=== PATIENT | male | born 1985 | race African-American/Black ===

== ENCOUNTER 2018-03-14 15:28 | Inpatient (IN) ==
--- NOTE | 2018-03-14 15:58 | Emergency Department Note ---
Disposition Clinical Impression: Paranoia, Hallucinations Disposition: Admitted As Inpatient Condition: Good Forms: ED Satisfaction Letter Psych HPI - General Chief Complaint: ED Psychiatric Symptoms Stated Complaint: Psych Time Seen by Provider: 03/14/18 15:36 Source: patient Mode of arrival: private vehicle Limitations: no limitations Nursing Notes Reviewed: Yes Vital Signs Reviewed: Yes - History of Present Illness HPI Narrative: 32-year-old male history of prior meth abuse who has been clean in recovery for over 2 months of presents to the ER due to hallucinations and paranoia. Staff from the recovery clinic says for the last 2 weeks he has had paranoia where the walk in the room and he is hiding her behind the bed. He feels unsafe and like something is going to happen. Also states he is hearing and seeing things that he knows is not there. Denies any suicidal or homicidal ideation. No past history of any psychiatric illness. Denies any current drug use. Denies any injury. No other complaints. Pt complaint: other (Paranoia, hallucinations) Onset (ago): week(s) History of similar episodes: No Improves with: none Worsens with: none Alleged intoxication: No Associated Psychiatric Symptoms: auditory hallucinations, visual hallucinations Associated symptoms: Reports: denies other symptoms Traumatic symptoms: denies traumatic injury Treatments prior to arrival: none Self harm or harm to others: denies thoughts of harming self/others, denies having a plan - Related Data Allergies Allergy/AdvReac Type Severity Reaction Status Date / Time No Known Allergies Allergy Verified 03/14/18 15:35 All systems ED: reviewed and negative except as stated. Cardiovascular: Denies: chest pain Respiratory: Denies: dyspnea Gastrointestinal: Denies: abdominal pain Musculoskeletal: Denies: back pain, neck pain Neurological: Denies: headache Psychiatric: Reports: auditory hallucinations, visual hallucinations. Denies: anxiety, depression, suicidal thoughts, homicidal thoughts Past Medical History - Past Medical History Attestation: Yes The following information was validated with the patient. Source: patient Medical history: Reports: no medical history Psychiatric history: Reports: anxiety, depression, panic disorder, PTSD - Social History Smoking Status: Current every day smoker Smokeless Tobacco Status: Yes Alcohol use: Reports: none Drug use: Reports: none Physical Exam - General Limitations: no limitations General appearance: alert, in no apparent distress - Head Head exam: atraumatic, normocephalic, normal inspection - Eye Eye exam: Present: normal appearance - ENT ENT exam: normal exam - Neck Neck exam: Present: normal inspection - Chest Chest inspection: Present: normal inspection, symmetric chest wall rise - Respiratory Respiratory exam: Present: normal lung sounds bilaterally - Cardiovascular Cardiovascular exam: Present: regular rate, normal rhythm, normal heart sounds - Abdominal Exam Abdominal exam: Present: soft, Non-Tender. Absent: tenderness, distention, rigidity - Extremities Exam Extremities exam: Present: normal inspection, full ROM - Expanded Upper Extremity Exam Shoulder exam: Present: normal inspection, full ROM Arm exam: Present: normal inspection, full ROM Elbow exam: Present: normal inspection, full ROM Forearm/Wrist exam: Present: normal inspection, full ROM Hand exam: Present: normal inspection, full ROM - Expanded Lower Extremity Exam Hip/Pelvis exam: Present: normal inspection, full ROM Upper leg exam: Present: normal inspection, full ROM Knee exam: Present: normal inspection, full ROM Lower leg exam: Present: normal inspection, full ROM Ankle exam: Present: normal inspection, full ROM Foot/toe exam: Present: normal inspection, full ROM - Neurological Exam Neurological exam: Present: alert, other (GCS 15, No focal deficits) - Psychiatric Psychiatric exam: Present: normal affect, normal mood - Skin Skin exam: Present: warm, dry Course Course Narrative: Patient seen and examined. Vital signs reviewed. Plan for labs for medical clearance for psychiatric evaluation. Vital Signs Temperature 98.7 F 03/14/18 15:34 Pulse Rate 75 03/14/18 15:34 Respiratory Rate 16 03/14/18 15:34 Blood Pressure 140/87 03/14/18 15:34 O2 Sat by Pulse Oximetry 98 03/14/18 15:34 Temperature 98.7 F 03/14/18 15:45 Pulse Rate 75 03/14/18 15:45 Respiratory Rate 16 03/14/18 15:45 Blood Pressure 140/87 03/14/18 15:45 O2 Sat by Pulse Oximetry 98 03/14/18 15:45 Oxygen Delivery Oxygen Delivery Room Air Psych - MDM Narrative Medical decision making narrative: 32-year-old male presenting with paranoia and delusions. Medically cleared for psychiatric evaluation. He was evaluated by our service and deemed appropriate for inpatient management. - Lab Data Lab results reviewed: Yes I reviewed the patient's lab results. Result diagrams: 03/14/18 15:48 03/14/18 15:48 Lab Results 03/14/18 03/14/18 03/14/18 Range/Units 15:36 15:48 15:48 WBC 6.4 (4.3-11.1) K/mcL RBC 5.04 (4.19-5.50) M/mcL Hgb 15.1 (12.9-16.9) g/dL Hct 45.3 (37.5-50.1) % MCV 89.9 (83.0-100.0) fL MCH 30.0 (28.0-33.3) pg MCHC 33.3 (31.6-35.5) g/dL RDW 13.9 (11.5-14.5) % Plt Count 269 (140-400) K/mcL MPV 9.7 (9.4-12.4) fL Immature Gran % 0.5 (0-4) % Seg Neutrophils % 49.1 % Lymphocytes % 32.2 % Monocytes % 15.5 % Eosinophils % 1.9 % Basophils % 0.8 % Neutrophils # 3.1 (1.6-8.9) K/mcL Lymphocytes # 2.1 (0.6-4.6) K/mcL Monocytes # 1.0 (0.0-1.3) K/mcL Eosinophils # 0.1 (0.0-0.6) K/mcL Basophils # 0.1 (0.0-0.2) K/mcL Sodium 137 (136-145) mEq/L Potassium 4.3 (3.5-5.1) mEq/L Chloride 104 (98-107) mEq/L Carbon Dioxide 28 (23-29) mEq/L BUN 17 (6-20) mg/dL Creatinine 1.15 (0.70-1.30) mg/dL Est GFR ( Amer) > 60 (> 60) Est GFR (Non-Af Amer) > 60 (> 60) BUN/Creatinine Ratio 15 (6-26) Glucose 95 (70-105) mg/dL Calculated Osmolality 285 (280-300) Calcium 9.5 (8.6-10.3) mg/dL TSH (0.340-5.600) mcIU/mL Urine Color (Yellow) Urine Clarity (Clear) Urine pH (5.0-8.0) pH Units Ur Specific [place] (1.010-1.025) Urine Protein (Neg-Trace) mg/dL Urine Glucose (UA) (Normal) mg/dL Urine Ketones (Negative) mg/dL Urine Blood (Negative) Urine Nitrite (Negative) Urine Bilirubin (Negative) Urine Urobilinogen (Normal) mg/dL Ur Leukocyte Esterase (Negative) Salicylates < 2.5 L (15.0-30.0) mg/dL Urine Opiates Screen Negative (Fzrpof=582) ng/mL Acetaminophen < 10 L (10-20) mcg/mL Ur Barbiturates Screen Negative (Cymcba=337) ng/mL Ur Phencyclidine Scrn Negative (Cutoff=25) ng/mL Ur Amphetamines Screen Negative (Cbswpp=2127) ng/mL U Benzodiazepines Scrn Negative (Kxsahc=947) ng/mL Urine Cocaine Screen Negative (Cutoff= 300) ng/mL U Marijuana (THC) Screen Negative (Cutoff = 50) ng/mL Ur Drug Screen Interp See Below Ethyl Alcohol < 10 (Less than 10) mg/dL 03/14/18 03/14/18 Range/Units 15:48 16:45 WBC (4.3-11.1) K/mcL RBC (4.19-5.50) M/mcL Hgb (12.9-16.9) g/dL Hct (37.5-50.1) % MCV (83.0-100.0) fL MCH (28.0-33.3) pg MCHC (31.6-35.5) g/dL RDW (11.5-14.5) % Plt Count (140-400) K/mcL MPV (9.4-12.4) fL Immature Gran % (0-4) % Seg Neutrophils % % Lymphocytes % % Monocytes % % Eosinophils % % Basophils % % Neutrophils # (1.6-8.9) K/mcL Lymphocytes # (0.6-4.6) K/mcL Monocytes # (0.0-1.3) K/mcL Eosinophils # (0.0-0.6) K/mcL Basophils # (0.0-0.2) K/mcL Sodium (136-145) mEq/L Potassium (3.5-5.1) mEq/L Chloride (98-107) mEq/L Carbon Dioxide (23-29) mEq/L BUN (6-20) mg/dL Creatinine (0.70-1.30) mg/dL Est GFR ( Amer) (> 60) Est GFR (Non-Af Amer) (> 60) BUN/Creatinine Ratio (6-26) Glucose (70-105) mg/dL Calculated Osmolality (280-300) Calcium (8.6-10.3) mg/dL TSH 0.740 (0.340-5.600) mcIU/mL Urine Color Yellow (Yellow) Urine Clarity Clear (Clear) Urine pH 6.5 (5.0-8.0) pH Units Ur Specific [place] 1.019 (1.010-1.025) Urine Protein Negative (Neg-Trace) mg/dL Urine Glucose (UA) Normal (Normal) mg/dL Urine Ketones Negative (Negative) mg/dL Urine Blood Negative (Negative) Urine Nitrite Negative (Negative) Urine Bilirubin Negative (Negative) Urine Urobilinogen Normal (Normal) mg/dL Ur Leukocyte Esterase Negative (Negative) Salicylates (15.0-30.0) mg/dL Urine Opiates Screen (Eolpyp=598) ng/mL Acetaminophen (10-20) mcg/mL Ur Barbiturates Screen (Ylfbui=357) ng/mL Ur Phencyclidine Scrn (Cutoff=25) ng/mL Ur Amphetamines Screen (Bssedh=2804) ng/mL U Benzodiazepines Scrn (Ipjuex=833) ng/mL Urine Cocaine Screen (Cutoff= 300) ng/mL U Marijuana (THC) Screen (Cutoff = 50) ng/mL Ur Drug Screen Interp Ethyl Alcohol (Less than 10) mg/dL Psychiatric Medical Clearance - Medical Clearance Checklist Medical History: No Social History Section defined Current Vitals: Last Vital Signs Temp 98.7 F 03/14/18 15:45 Pulse 75 03/14/18 15:45 Resp 16 03/14/18 15:45 BP 140/87 03/14/18 15:45 Pulse Ox 98 03/14/18 15:45 Psychiatric Lab Panel: Drug Levels and Toxicity 03/14/18 03/14/18 15:36 15:48 Urine Opiates Screen Negative Acetaminophen < 10 L Ur Barbiturates Screen Negative Ur Phencyclidine Scrn Negative Ur Amphetamines Screen Negative U Benzodiazepines Scrn Negative Urine Cocaine Screen Negative U Marijuana (THC) Screen Negative Ethyl Alcohol < 10 Abnormal Labs: Abnormal lab results Salicylates < 2.5 mg/dL (15.0-30.0) L 03/14/18 15:48 Acetaminophen < 10 mcg/mL (10-20) L 03/14/18 15:48 Statement of Medical Clearance: I have evaluated the patient, reviewed diagnostic information, and certify that the patient's medical condition is sufficiently stable that transfer to the psychiatric unit does not pose a significant risk of deterioration. Attestation Statement - Attestation Attestation: I, Heri Herrera, examined this patient and my medical decision-making was reviewed with the PMP CERTIFIED PROJECT MANAGER/PA/Advanced Practice Nurse/Resident Physician. I agree with the documented findings, disposition and treatment plan as described except to the extent set forth below. 32-year-old male presents emergency Department with concerns of auditory and visual hallucinations. Patient states that the hallucinations have been worsening over the past few days. Patient is recovering from methamphetamine addiction and has been sober for 2 months. Over the past 2 days the rehabilitation facility workers have noticed that he has been increasingly paranoid, thinking that cars that were driving by were out to get him. Because of the symptoms he was referred to [facility] for [facility] health evaluation. Patient denies HI however he has had occasional suicidal ideation. He does not have a specific plan. Patient denies SI attempt. Patient states he often sees shadows and other visual hallucinations. He also reports command auditory hallucinations. Patient will be medically cleared and evaluated by behavioral health.
[2018-03-14 16:12] LABS: Basophils # 0.1 K/mcL (0.0-0.2); Basophils % 0.8 %; Eosinophils # 0.1 K/mcL (0.0-0.6); Eosinophils % 1.9 %; Hematocrit 45.3 % (37.5-50.1); Hemoglobin 15.1 g/dL (12.9-16.9); Immature Granulocytes % 0.5 % (0-4); Lymphocytes # 2.1 K/mcL (0.6-4.6); Lymphocytes % 32.2 %; Mean Corpuscular HGB Conc 33.3 g/dL (31.6-35.5); Mean Corpuscular Volume 89.9 fL (83.0-100.0); Mean Platelet Volume 9.7 fL (9.4-12.4); Monocytes % 15.5 %; Neutrophils # 3.1 K/mcL (1.6-8.9); Platelet Count 269 K/mcL (140-400); Red Blood Count 5.04 M/mcL (4.19-5.50); Red Cell Distribution Width 13.9 % (11.5-14.5); Segmented Neutrophils % 49.1 %
[2018-03-14 16:26] LABS: Acetaminophen < 10 mcg/mL (10-20); BUN/Creatinine Ratio 15 (6-26); Blood Urea Nitrogen 17 mg/dL (6-20); Calcium 9.5 mg/dL (8.6-10.3); Carbon Dioxide 28 mEq/L (23-29); Chloride 104 mEq/L (98-107); Ethanol < 10 mg/dL (Less than 10); Glucose 95 mg/dL (70-105); Osmolality,Calculated 285 (280-300); Potassium 4.3 mEq/L (3.5-5.1); Salicylate < 2.5 mg/dL (15.0-30.0); Sodium 137 mEq/L (136-145); eGFR For Non-African Americans > 60 (> 60)
[2018-03-14 17:08] LABS: Amphetamine Screen,Urine Negative ng/mL (Cutoff=1000); Barbiturate Screen,Urine Negative ng/mL (Cutoff=200); Benzodiazepines Screen,Urine Negative ng/mL (Cutoff=200); Cannabinoid Screen,Urine Negative ng/mL (Cutoff = 50); Cocaine Screen,Urine Negative ng/mL (Cutoff= 300); Opiate Screen,Urine Negative ng/mL (Cutoff=300); Phencyclidine Screen,Urine Negative ng/mL (Cutoff=25)
[2018-03-14 17:12] LABS: Bilirubin,Urine Negative (Negative); Blood,Urine Negative (Negative); Clarity,Urine Clear (Clear); Color,Urine Yellow (Yellow); Glucose,Urine (UA) Normal (Normal); Ketones,Urine Negative (Negative); Leukocyte Esterase,Urine Negative (Negative); Nitrite,Urine Negative (Negative); PH,Urine 6.5 pH Units (5.0-8.0); Protein,Urine Negative (Neg-Trace); Specific Gravity,Urine 1.019 (1.010-1.025); Urobilinogen,Urine Normal (Normal)
[2018-03-14] MEDS ORDERED: *HR* LORazepam 2 MG/ML VIAL IM PRN (19:07)
[2018-03-14] MEDS ORDERED: Acetaminophen 325 MG TABLET PO PRN (19:07)
[2018-03-14] MEDS ORDERED: MOM Conc 10 ML UD.LIQ PO PRN (19:07)
[2018-03-14] MEDS ORDERED: *HR* LORazepam 1 MG TABLET PO PRN (19:07)
[2018-03-14] MEDS ORDERED: Haloperidol Lactate 5 MG/ML VIAL IM PRN (19:07)
[2018-03-14] MEDS ORDERED: Mag Hydrox/Al Hydrox/Simeth 30 ML UDC PO PRN (19:07)
[2018-03-14] MEDS: hydrOXYzine pamoate 25 MG CAPSULE PO PRN (20:38)
--- NOTE | 2018-03-15 12:20 | Psychiatry History & Physical ---
Date of Encounter: 03/15/18 Time of Encounter: 11:40 History of Present Illness Patient Stated Chief Complaint: I am ok Medicare Admission Attestation: For traditional Medicare patients the provided hospital inpatient services are reasonable and necessary and in the case of services not specified as inpatient -only under 42 CFR 419.22 (n), that they are appropriately provided as inpatient services in accordance 42 CFR 412.3. For Critical Access Hospital the patient may reasonably be expected to be discharged or transferred to a hospital within 96 hours after admission to the Critical [facility] Hospital. Admitted From: Emergency Dept Plans for Post Hospital Care: Transfer Other History of Present Illness: Mr. Garrett is a 32 year old male evaluated today . From Chart 32-year-old male history of prior meth abuse who has been clean in recovery for over 2 months of presents to the ER due to hallucinations and paranoia. Staff from the recovery clinic says for the last 2 weeks he has had paranoia where the walk in the room and he is hiding her behind the bed. He feels unsafe and like something is going to happen. Also states he is hearing and seeing things that he knows is not there. Denies any suicidal or homicidal ideation. No past history of any psychiatric illness. Denies any current drug use. Denies any injury. No other complaints. HPI : Patient evaluated states i am confuse , i am not using any driugs , my piss is clean but i am not liking the feeling that someone is watching me and will kill me, i also have been hearing things like beeping noise, i have been seeing shadows tall men after me, i am scared , i am clean what is happening, he has been clean for 2 months now. he used Meth snorted it did for 6 months states he had uses weed ,cocain , pills and alcohol . this is his second rehab. no prior psychiatric treatment , only substance use treatment. He is very paranoid , cameras, and someone wants to kill him , he states this is all new to me, i am fearful , i have never been in gang , i do not owe anyone and i am getting nervous around people and they will harm me, i am too scared to harm others, dnies suicidal ideation. feeling depress and i worry a lot what will happen , i was very emotional this morning. he has feeling like this for 2-3 weeks now. A/P ACute psychosis AMPHETAMINE USE DISORDER 2 MONTHS SOBERITY POLY SUBSTANCE USE . Will admit patient for stabilization for psychosis . start medication and unit drug. Past Med Surg Social Fam HX - Past Medical History Medical history: no medical history - Past Psychiatric History Psychiatric history: Reports: no psych history Family psychiatric history: No Family History of Suicide: None - Social History Smoking Status: Current every day smoker Smokeless Tobacco Status: Yes Alcohol use: none Drug use: none Occupational status: unemployed Current living situation: Other Activity Level: Independent ambulation Recent Out of Country Travel Within the Last 8 Weeks: No Exposure or Possible Exposure to Illness During Travel: No Medications & Allergies No Known Home Drugs 03/14/18 [History] 3 Allergy/AdvReac Type Severity Reaction Status Date / Time No Known Allergies Allergy Verified 03/14/18 15:35 Review of Systems Constitutional: Denies: fever, chills, weakness, weight change Eyes: Denies: eye pain, vision change Ears, Nose, Throat: Denies: ear pain, throat pain, dental pain, hearing loss, congestion Cardiovascular: Denies: chest pain, palpitations, dyspnea on exertion Respiratory: Denies: cough, dyspnea, wheezes Gastrointestinal: Denies: abdominal pain, nausea, vomiting, diarrhea, constipation Genitourinary male: Denies: urgency, dysuria, frequency, genital lesions Musculoskeletal: Denies: joint swelling, joint pain Integumentary: Denies: rash, lesions, pruritus Neurological: Denies: headache, weakness, numbness, memory loss Psychiatric: Reports: depression, abnormal sleep pattern, auditory hallucinations, visual hallucinations, mood swings Endocrine: Denies: fatigue, heat or cold intolerance Hematologic/Lymphatic: Denies: easy bruising, lymphadenopathy Allergic/Immunologic: Denies: urticaria, itchy eyes Exam - HEENT Head exam IM: Present: atraumatic Eye exam IM: Present: EOMI, normal appearance, PERRL ENT exam IM: Present: normal exam - Neurological Neurological exam: Present: CN II-XII intact - Respiratory Respiratory exam IM: Present: CTAB - GI/Abdominal GI/Abdominal exam IM: Present: normal bowel sounds, soft. Absent: tenderness - Extremities Extremities exam IM: Present: full ROM - Skin Skin exam IM: Present: dry, warm - Constitutional Vitals: Temp Pulse Resp BP Pulse Ox 97.8 F 99 16 116/79 98 03/15/18 09:00 03/15/18 09:00 03/15/18 09:00 03/15/18 09:00 03/14/18 15:45 General appearance: average - Musculoskeletal Gait: normal Station: other Strength & Tone: normal for patient - Psychiatric Patient Orientation: Yes Person, Yes Time, Yes Place Level of alertness: Alert Behavior: cooperative, guarded Psychomotor activity: Normal Eye Contact: Maintains Eye Contact Mood Description: Depressed Affect description: constricted Speech Volume: Normal Speech pattern: coherent Language & Vocabulary: consistent with education Thought Process: Racing Thought Content: Yes Preoccupation, Yes Paranoid delusion Perceptual Disturbances: Yes Auditory hallucinations, Yes Visual hallucinations Attention Span Ability: Capable of Focused Attention Memory Description: Grossly Intact Patient Reliability: Reliable Historian Fund of knowledge: Yes average Intelligence Estimate: Average Judgment: Limited Insight: Partial Results - Labs Labs: Laboratory Last Values WBC 6.4 K/mcL (4.3-11.1) 03/14/18 15:48 RBC 5.04 M/mcL (4.19-5.50) 03/14/18 15:48 Hgb 15.1 g/dL (12.9-16.9) 03/14/18 15:48 Hct 45.3 % (37.5-50.1) 03/14/18 15:48 MCV 89.9 fL (83.0-100.0) 03/14/18 15:48 MCH 30.0 pg (28.0-33.3) 03/14/18 15:48 MCHC 33.3 g/dL (31.6-35.5) 03/14/18 15:48 RDW 13.9 % (11.5-14.5) 03/14/18 15:48 Plt Count 269 K/mcL (140-400) 03/14/18 15:48 MPV 9.7 fL (9.4-12.4) 03/14/18 15:48 Immature Gran % 0.5 % (0-4) 03/14/18 15:48 Seg Neutrophils % 49.1 % 03/14/18 15:48 Lymphocytes % 32.2 % 03/14/18 15:48 Monocytes % 15.5 % 03/14/18 15:48 Eosinophils % 1.9 % 03/14/18 15:48 Basophils % 0.8 % 03/14/18 15:48 Neutrophils # 3.1 K/mcL (1.6-8.9) 03/14/18 15:48 Lymphocytes # 2.1 K/mcL (0.6-4.6) 03/14/18 15:48 Monocytes # 1.0 K/mcL (0.0-1.3) 03/14/18 15:48 Eosinophils # 0.1 K/mcL (0.0-0.6) 03/14/18 15:48 Basophils # 0.1 K/mcL (0.0-0.2) 03/14/18 15:48 Sodium 137 mEq/L (136-145) 03/14/18 15:48 Potassium 4.3 mEq/L (3.5-5.1) 03/14/18 15:48 Chloride 104 mEq/L (98-107) 03/14/18 15:48 Carbon Dioxide 28 mEq/L (23-29) 03/14/18 15:48 BUN 17 mg/dL (6-20) 03/14/18 15:48 Creatinine 1.15 mg/dL (0.70-1.30) 03/14/18 15:48 Est GFR ( Amer) > 60 (> 60) 03/14/18 15:48 Est GFR (Non-Af Amer) > 60 (> 60) 03/14/18 15:48 BUN/Creatinine Ratio 15 (6-26) 03/14/18 15:48 Glucose 95 mg/dL (70-105) 03/14/18 15:48 Calculated Osmolality 285 (280-300) 03/14/18 15:48 Calcium 9.5 mg/dL (8.6-10.3) 03/14/18 15:48 TSH 0.740 mcIU/mL (0.340-5.600) 03/14/18 15:48 Urine Color Yellow (Yellow) 03/14/18 16:45 Urine Clarity Clear (Clear) 03/14/18 16:45 Urine pH 6.5 pH Units (5.0-8.0) 03/14/18 16:45 Ur Specific [place] 1.019 (1.010-1.025) 03/14/18 16:45 Urine Protein Negative mg/dL (Neg-Trace) 03/14/18 16:45 Urine Glucose (UA) Normal mg/dL (Normal) 03/14/18 16:45 Urine Ketones Negative mg/dL (Negative) 03/14/18 16:45 Urine Blood Negative (Negative) 03/14/18 16:45 Urine Nitrite Negative (Negative) 03/14/18 16:45 Urine Bilirubin Negative (Negative) 03/14/18 16:45 Urine Urobilinogen Normal mg/dL (Normal) 03/14/18 16:45 Ur Leukocyte Esterase Negative (Negative) 03/14/18 16:45 Salicylates < 2.5 mg/dL (15.0-30.0) L 03/14/18 15:48 Urine Opiates Screen Negative ng/mL (Kcqwpe=348) 03/14/18 15:36 Acetaminophen < 10 mcg/mL (10-20) L 03/14/18 15:48 Ur Barbiturates Screen Negative ng/mL (Xjodnd=803) 03/14/18 15:36 Ur Phencyclidine Scrn Negative ng/mL (Cutoff=25) 03/14/18 15:36 Ur Amphetamines Screen Negative ng/mL (Qtxqst=2191) 03/14/18 15:36 U Benzodiazepines Scrn Negative ng/mL (Xwccbe=499) 03/14/18 15:36 Urine Cocaine Screen Negative ng/mL (Cutoff= 300) 03/14/18 15:36 U Marijuana (THC) Screen Negative ng/mL (Cutoff = 50) 03/14/18 15:36 Ur Drug Screen Interp See Below 03/14/18 15:36 Ethyl Alcohol < 10 mg/dL (Less than 10) 03/14/18 15:48 Assessment and Plan (1) Acute psychosis Current visit: Yes Status: Acute Plan: Admit inpatient for safety and stabilization, Close observation, Suicide Precautions per unit protocol, Encourage participation in unit milieu, Group Therapy, Monitor sleep, Monitor appetite, Family/Supportive other meeting Additional Plan: will admit patient for psychosis , start medication and unit milieu Risks, benefits, side effects, alternatives discussed w/pt: Yes Patient agreeable to treatment: Yes Plans for Post Hospital Care: Transfer Other
[2018-03-15] MEDS: hydrOXYzine pamoate 25 MG CAPSULE PO PRN (20:49)
[2018-03-15] MEDS: risperiDONE 1 MG TABLET PO SCH (20:49)
--- NOTE | 2018-03-16 11:26 | Psychiatry Progress Note ---
Date of Encounter: 03/16/18 Time of Encounter: 11:00 Subjective Interval history: Patient seen today ,case d/w treatment team , he slept well, did not had any nightmares, but still remains paranoid and thoughts about people to harm him , he is also feeling sad and depress, i am worried about emotions and i want the stuff in my head to get better. he feels hopeless and has guilt , denies suicide ideation. he is looking dysphoric and agreed feeling not good , he states i know my head is not right. will add escitalopram 10 mg to treatment plan , continue risperdal , need to taper up slowly. continue observation and stabilization. Review of Systems Psychiatric: Reports: depression, abnormal sleep pattern, auditory hallucinations, visual hallucinations, mood swings Results - Vital Signs Vital Signs: Temp Pulse Resp BP Pulse Ox 98.5 F 70 18 148/90 98 03/15/18 21:00 03/15/18 21:00 03/15/18 21:00 03/15/18 21:00 03/14/18 15:45 Assessment and Plan (1) Acute psychosis Current visit: Yes Status: Acute Risks, benefits, side effects, alternatives discussed w/pt: Yes Patient agreeable to treatment: Yes (2) Depressive disorder Current visit: Yes Status: Acute Plan: Continue hospitalization, Close observation, Suicide Precautions per unit protocol, Encourage participation in unit milieu, Group Therapy, Monitor sleep, Monitor appetite, Family/Supportive other meeting Risks, benefits, side effects, alternatives discussed w/pt: Yes Patient agreeable to treatment: Yes Consult Discharge Plan - Plan Additional Instructions: You will be returning to residential substance abuse treatment services at [facility], [facility] [address] [address], phone [phone], on discharge from hospital. Referrals: [facility] [Outside] - 03/22/18 10:00 am (Due to a shortage of intake appointments at [facility], you will be seen by Mirlande Ha at [facility] to have your case opened. Mirlande will then immediately transfer your case to [facility] where you will be scheduled to see the psychiatrist within 30 days. Staff from both clinics are aware of your need and are in agreement with this process so your needs are met as quickly as possible. Please bring the following with you to your first visit to the clinic: 1) proof of income (or a statement from the person who financially supports you stating they help provide for your basic needs), 2) proof of address (a statement from person you live with verifying you live at their address), 3) your social security number, 4) photo ID, and 5) your insurance card. ) Psychiatry Exam - Constitutional Vitals: Temp Pulse Resp BP Pulse Ox 98.5 F 70 18 148/90 98 03/15/18 21:00 03/15/18 21:00 03/15/18 21:00 03/15/18 21:00 03/14/18 15:45 General appearance: average - Musculoskeletal Gait: normal Station: other Strength & Tone: normal for patient - Psychiatric Patient Orientation: Yes Person, Yes Time, Yes Place Level of alertness: Alert Behavior: guarded, withdrawn Psychomotor activity: Slowed Eye Contact: Minimal Contact Mood Description: Depressed, Anxious Affect description: congruent with mood, dysphoric Speech Volume: Normal Speech pattern: slowed Language & Vocabulary: consistent with education Thought Process: Intact Thought Content: Yes Preoccupation, Yes Paranoid delusion Perceptual Disturbances: No Auditory hallucinations, No Visual hallucinations Attention Span Ability: Capable of Focused Attention Memory Description: Grossly Intact Patient Reliability: Reliable Historian Fund of knowledge: Yes average Intelligence Estimate: Average Judgment: Limited Insight: Partial
[2018-03-16] MEDS: risperiDONE 1 MG TABLET PO SCH (21:30)
--- NOTE | 2018-03-17 10:57 | Psychiatry Progress Note ---
Date of Encounter: 03/17/18 Time of Encounter: 10:46 Subjective Interval history: Client reports he is feeling better. Thinks meds are starting to help him. Still has some paranoia but hallucinations have lessened. Plans to go back to [facility] once discharged but doesn't feel quite ready yet. Staff agree that he is doing better but not yet stable for discharge. Pleasant today but still has observable anxiety. Review of Systems Constitutional: Denies: fever, chills, weakness, weight change Eyes: Denies: eye pain, vision change Ears, Nose, Throat: Denies: ear pain, throat pain, dental pain, hearing loss, congestion Cardiovascular: Denies: chest pain, palpitations, dyspnea on exertion Respiratory: Denies: cough, dyspnea, wheezes Gastrointestinal: Denies: abdominal pain, nausea, vomiting, diarrhea, constipation Musculoskeletal: Denies: joint swelling, joint pain Neurological: Denies: headache, weakness, numbness, memory loss Psychiatric: Reports: depression, abnormal sleep pattern, auditory hallucinations, visual hallucinations, mood swings Results - Vital Signs Vital Signs: Temp Pulse Resp BP Pulse Ox 98.7 F 76 18 143/91 98 03/16/18 21:00 03/16/18 21:00 03/16/18 21:00 03/16/18 21:00 03/14/18 15:45 Assessment and Plan (1) Substance-induced psychotic disorder Current visit: Yes Status: Acute Plan: Continue hospitalization, Close observation, Suicide Precautions per unit protocol, Encourage participation in unit milieu, Group Therapy, Monitor sleep, Monitor appetite Risks, benefits, side effects, alternatives discussed w/pt: Yes Patient agreeable to treatment: Yes Consult Discharge Plan - Plan Additional Instructions: You will be returning to residential substance abuse treatment services at [facility], [facility] [address] [address], phone [phone], on discharge from hospital. Referrals: [facility] [Outside] - 03/22/18 10:00 am (Due to a shortage of intake appointments at [facility], you will be seen by Mirlande Ha at [facility] to have your case opened. Mirlande will then immediately transfer your case to [facility] where you will be scheduled to see the psychiatrist within 30 days. Staff from both clinics are aware of your need and are in agreement with this process so your needs are met as quickly as possible. Please bring the following with you to your first visit to the clinic: 1) proof of income (or a statement from the person who financially supports you stating they help provide for your basic needs), 2) proof of address (a statement from person you live with verifying you live at their address), 3) your social security number, 4) photo ID, and 5) your insurance card. ) Psychiatry Exam - Constitutional Vitals: Temp Pulse Resp BP Pulse Ox 98.7 F 76 18 143/91 98 03/16/18 21:00 03/16/18 21:00 03/16/18 21:00 03/16/18 21:00 03/14/18 15:45 General appearance: age & developmentally appropriate, well-groomed, well- nourished - Musculoskeletal Gait: normal Station: relaxed Strength & Tone: normal for patient - Psychiatric Patient Orientation: Yes Person, Yes Time, Yes Place Level of alertness: Alert Behavior: anxious Psychomotor activity: Normal Eye Contact: Maintains Eye Contact Mood Description: Anxious Affect description: congruent with mood Speech Volume: Normal Speech pattern: normal rate, normal rhythm, normal tone, fluent, spontaneous Language & Vocabulary: consistent with education Thought Process: Linear Thought Content: No Suicidal ideation, No Homicidal ideation, No Overt delusions Perceptual Disturbances: No Auditory hallucinations, No Visual hallucinations Attention Span Ability: Capable of Focused Attention Memory Description: Grossly Intact Patient Reliability: Reliable Historian Fund of knowledge: Yes abstraction ability, Yes aware of current events Intelligence Estimate: Below Average Judgment: Fair Insight: Partial
[2018-03-17] MEDS: risperiDONE 1 MG TABLET PO SCH (20:55)
[2018-03-17] MEDS: hydrOXYzine pamoate 25 MG CAPSULE PO PRN (20:55)
--- NOTE | 2018-03-18 11:17 | Psychiatry Progress Note ---
Date of Encounter: 03/18/18 Time of Encounter: 11:14 Subjective Interval history: Looks better. Denies any further hallucinations. Denies paranoia. Still a little anxious but client feels he is ready to manage at [facility] again. Given Seroquel last night to help him sleep and client reports this was effective. Would like to continue this after discharge. According to staff he has been pleasant and cooperative on the unit. Will contact rehab. Likely discharge tomorrow. Review of Systems Constitutional: Denies: fever, chills, weakness, weight change Eyes: Denies: eye pain, vision change Ears, Nose, Throat: Denies: ear pain, throat pain, dental pain, hearing loss, congestion Cardiovascular: Denies: chest pain, palpitations, dyspnea on exertion Respiratory: Denies: cough, dyspnea, wheezes Gastrointestinal: Denies: abdominal pain, nausea, vomiting, diarrhea, constipation Musculoskeletal: Denies: joint swelling, joint pain Neurological: Denies: headache, weakness, numbness, memory loss Psychiatric: Reports: depression, abnormal sleep pattern, auditory hallucinations, visual hallucinations, mood swings Results - Vital Signs Vital Signs: Temp Pulse Resp BP Pulse Ox 98.0 F 71 18 119/76 98 03/18/18 09:00 03/18/18 09:00 03/18/18 09:00 03/18/18 09:00 03/14/18 15:45 Assessment and Plan (1) Substance-induced psychotic disorder Current visit: Yes Status: Acute Plan: Continue hospitalization, Close observation, Suicide Precautions per unit protocol, Encourage participation in unit milieu, Group Therapy, Monitor sleep, Monitor appetite Risks, benefits, side effects, alternatives discussed w/pt: Yes Patient agreeable to treatment: Yes Consult Discharge Plan - Plan Additional Instructions: You will be returning to residential substance abuse treatment services at [facility], [facility] [address] [address], phone [phone], on discharge from hospital. Referrals: [facility] [Outside] - 03/22/18 10:00 am (Due to a shortage of intake appointments at [facility], you will be seen by Mirlande Ha at [facility] to have your case opened. Mirlande will then immediately transfer your case to [facility] where you will be scheduled to see the psychiatrist within 30 days. Staff from both clinics are aware of your need and are in agreement with this process so your needs are met as quickly as possible. Please bring the following with you to your first visit to the clinic: 1) proof of income (or a statement from the person who financially supports you stating they help provide for your basic needs), 2) proof of address (a statement from person you live with verifying you live at their address), 3) your social security number, 4) photo ID, and 5) your insurance card. ) Psychiatry Exam - Constitutional Vitals: Temp Pulse Resp BP Pulse Ox 98.0 F 71 18 119/76 98 03/18/18 09:00 03/18/18 09:00 03/18/18 09:00 03/18/18 09:00 03/14/18 15:45 General appearance: age & developmentally appropriate, well-groomed, well- nourished - Musculoskeletal Gait: normal Station: relaxed Strength & Tone: normal for patient - Psychiatric Patient Orientation: Yes Person, Yes Time, Yes Place Level of alertness: Alert Behavior: calm, cooperative Psychomotor activity: Normal Eye Contact: Maintains Eye Contact Mood Description: Anxious Affect description: congruent with mood Speech Volume: Normal Speech pattern: normal rate, normal rhythm, normal tone, fluent, spontaneous Language & Vocabulary: consistent with education Thought Process: Linear, Goal Oriented Thought Content: No Suicidal ideation, No Homicidal ideation, No Overt delusions Perceptual Disturbances: No Auditory hallucinations, No Visual hallucinations Attention Span Ability: Capable of Focused Attention Memory Description: Grossly Intact Patient Reliability: Reliable Historian Fund of knowledge: Yes abstraction ability, Yes aware of current events Intelligence Estimate: Average Judgment: Fair Insight: Partial
[2018-03-18] MEDS: hydrOXYzine pamoate 25 MG CAPSULE PO PRN (20:27)
[2018-03-18] MEDS: risperiDONE 1 MG TABLET PO SCH (20:27)
[2018-03-19 08:36] VITALS: BP 125/79
--- NOTE | 2018-03-19 10:25 | Discharge Summary ---
Date of Encounter: 03/19/18 Time of Encounter: 10:30 Diagnosis - Discharge Diagnosis (1) Acute psychosis Priority: Secondary Status: Resolved (2) Depressive disorder Priority: Primary Status: Acute (3) Substance-induced psychotic disorder Priority: Secondary Status: Resolved Medications - Discharge Medications Prescriptions: Benztropine [Cogentin] 0.5 mg PO HS 30 Days #30 tablet Escitalopram [Lexapro] 10 mg PO DAILY 30 Days #30 tablet hydrOXYzine pamoate [HydrOXYzine Pamoate] 25 mg PO TID PRN 90 Days #30 capsule PRN Reason: Anxiety risperiDONE [RisperDAL] 1 mg PO HS 30 Days #30 tablet Benztropine [Cogentin] 0.5 mg PO HS 30 Days #30 tablet 03/19/18 [Rx] Escitalopram [Lexapro] 10 mg PO DAILY 30 Days #30 tablet 03/19/18 [Rx] hydrOXYzine pamoate [HydrOXYzine Pamoate] 25 mg PO TID PRN 90 Days #30 capsule 03/19/18 [Rx] risperiDONE [RisperDAL] 1 mg PO HS 30 Days #30 tablet 03/19/18 [Rx] 3 Allergy/AdvReac Type Severity Reaction Status Date / Time No Known Allergies Allergy Verified 03/14/18 15:35 Provider Date of admission: 03/14/18 19:03 Primary care physician: PCP NONE Discharging clinician: Neal Shukla Psychiatry Exam - Constitutional Vitals: Temp Pulse Resp BP Pulse Ox 98.7 F 71 18 125/79 98 03/19/18 08:35 03/19/18 08:35 03/19/18 08:35 03/19/18 08:35 03/14/18 15:45 General appearance: age & developmentally appropriate, well-groomed, well- nourished - Musculoskeletal Gait: normal Station: relaxed Strength & Tone: normal for patient - Psychiatric Patient Orientation: Yes Person, Yes Time, Yes Place Level of alertness: Alert Behavior: calm, cooperative Psychomotor activity: Normal Eye Contact: Maintains Eye Contact Mood Description: Euthymic/stable Affect description: congruent with mood, full range Speech Volume: Normal Speech pattern: normal rate, normal rhythm, normal tone, fluent, spontaneous Language & Vocabulary: consistent with education Thought Process: Linear, Goal Oriented Thought Content: No Suicidal ideation, No Homicidal ideation, No Overt delusions Perceptual Disturbances: No Auditory hallucinations, No Visual hallucinations Attention Span Ability: Capable of Focused Attention Memory Description: Grossly Intact Patient Reliability: Reliable Historian Fund of knowledge: Yes abstraction ability, Yes aware of current events Intelligence Estimate: Average Judgment: Fair Insight: Partial Hospital Course Hospital course: Mr. Garrett is a 32 year old male The patient describes that he is improved and he no longer hears the voices. Chief complaint: I had a lot of paranoia and that is when they brought me in. The patient was seen and evaluated on the inpatient unit. He participated in hutchins activities and over. Of time he developed less paranoia. The patient is showing me medicines that he was on prior to admission these include Seroquel risperidone Vistaril and Cogentin. However on the inpatient unit he was prescribed trazodone. He took Seroquel when necessary remained on scheduled Cogentin and Risperdal. Overall the voices diminished and while he acknowledges hearing he thinks that the people who were speaking to him are now . He notices that this may have her March later in his life after drinking or using substances. Patient now adheres to sobriety. He now will go to [facility]. However the patient cannot be discharged on trazodone. He cannot be discharged on Seroquel therefore adjustments were made time of discharge and the patient was placed on a trial of prazosin 1 mg daily at bedtime. It is likely that he will tolerate this is he tolerated trazodone. His follow-up will be at [facility] and later the [facility]. The patient was a 1 pack per day smoker. While on the unit he was able to give up smoking he did not want to have nicotine patches at the time discharge. I discussed the importance of smoking cessation at the time discharge.. The patient was discharged with a diagnosis of F 23 brief reactive psychosis now resolved, F 33.9 depressive disorder not otherwise specified for which she is on Lexapro. Substance-induced psychosis was also given as a diagnosis again since resolved. But the patient may need to be considered for the possibility of alcohol hallucinosis rule out F 10.951). The patient agrees to 90 meetings in 90 days. He agrees to getting a sponsor. He recognizes the need for sobriety and abstinence from drugs of abuse. Patient had no suicidal ideation at the time of discharge and no significant paranoia. The trial of prazosin was started on an outpatient basis patient was educated on the side effects of this medicine. He was educated on the importance of taking his other medicines as well Time spent discussing smoking cessation with patient: 3 to 10 minutes Does patient wish to continue nicotine replacement upon disc: No - Time Spent with Patient Total time spent providing and/or coordinating discharge services: Less than 30 minutes Assessment and Plan - Patient/Caregiver Discharge Instructions Activity: resume usual activities as tolerated Diet: regular diet Additional Instructions: You will be returning to residential substance abuse treatment services at [facility], [address] [place] [address], phone [phone], on discharge from hospital. - Follow up Plan Follow up with: [facility] [Outside] - 03/22/18 10:00 am (Due to a shortage of intake appointments at [facility], you will be seen by Mirlande Ha at [facility] to have your case opened. Mirlande will then immediately transfer your case to [facility] where you will be scheduled to see the psychiatrist within 30 days. Staff from both clinics are aware of your need and are in agreement with this process so your needs are met as quickly as possible. Please bring the following with you to your first visit to the clinic: 1) proof of income (or a statement from the person who financially supports you stating they help provide for your basic needs), 2) proof of address (a statement from person you live with verifying you live at their address), 3) your social security number, 4) photo ID, and 5) your insurance card. ) Functional capacity at discharge: independent ambulation Overall status at discharge: Stable Disposition: Home, Self-Care Quality - Multiple Antipsychotics Patient discharged on 2 or more antipsychotic medications: No - Justification Documentation of: History 3 failed trials of monotherapy Procedures - Procedures Procedures: Medication Management, Crisis Stabilization, Supportive Therapy, Group Therapy, Psychoeducational Therapy
== END 2018-03-19 12:10 | disposition home or self-care (01) | DRG 751 ==
LOC: EMEROOARM 15:28 → SUATTDRO 19:03 → 1ANU 19:03
PROVIDERS: ADMIT Psychiatry & Neurology Psychiatry; ATTEND Psychiatry & Neurology Forensic Psychiatry

== ENCOUNTER 2018-04-12 14:46 | Inpatient (IN) ==
[2018-04-12 16:01] LABS: Bilirubin,Urine Negative (Negative); Blood,Urine Negative (Negative); Clarity,Urine Clear (Clear); Color,Urine Yellow (Yellow); Glucose,Urine (UA) Normal (Normal); Ketones,Urine Negative (Negative); Leukocyte Esterase,Urine Negative (Negative); Nitrite,Urine Negative (Negative); PH,Urine 6.5 pH Units (5.0-8.0); Protein,Urine Negative (Neg-Trace); Specific Gravity,Urine 1.011 (1.010-1.025); Urobilinogen,Urine Normal (Normal)
[2018-04-12 16:17] LABS: Amphetamine Screen,Urine Negative ng/mL (Cutoff=1000); Barbiturate Screen,Urine Negative ng/mL (Cutoff=200); Benzodiazepines Screen,Urine Negative ng/mL (Cutoff=200); Cannabinoid Screen,Urine Positive ng/mL (Cutoff = 50); Cocaine Screen,Urine Negative ng/mL (Cutoff= 300); Opiate Screen,Urine Negative ng/mL (Cutoff=300); Phencyclidine Screen,Urine Negative ng/mL (Cutoff=25)
[2018-04-12 16:19] LABS: Basophils # 0.1 K/mcL (0.0-0.2); Basophils % 0.9 %; Eosinophils # 0.1 K/mcL (0.0-0.6); Eosinophils % 1.7 %; Hematocrit 47.6 % (37.5-50.1); Hemoglobin 16.2 g/dL (12.9-16.9); Immature Granulocytes % 0.4 % (0-4); Lymphocytes # 1.9 K/mcL (0.6-4.6); Lymphocytes % 35.2 %; Mean Corpuscular Hemoglobin 30.2 pg (28.0-33.3); Mean Corpuscular Volume 88.6 fL (83.0-100.0); Mean Platelet Volume 9.4 fL (9.4-12.4); Monocytes # 0.8 K/mcL (0.0-1.3); Monocytes % 14.5 %; Neutrophils # 2.6 K/mcL (1.6-8.9); Platelet Count 267 K/mcL (140-400); Red Blood Count 5.37 M/mcL (4.19-5.50); Red Cell Distribution Width 12.6 % (11.5-14.5); Segmented Neutrophils % 47.3 %
[2018-04-12 16:36] LABS: Acetaminophen < 10 mcg/mL (10-20); Alanine Aminotransferase 34 Units/L (7-52); Albumin 4.5 g/dL (3.5-5.7); Albumin/Globulin Ratio 1.5 (1.1-2.2); Alkaline Phosphatase 35 Units/L (34-104); Aspartate Amino Transferase 26 Units/L (13-39); Bilirubin,Direct 0.1 mg/dL (0.0-0.2); Bilirubin,Indirect 0.3 mg/dL (0.0-1.2); Bilirubin,Total 0.4 mg/dL (0.3-1.0); Ethanol < 10 mg/dL (Less than 10); Salicylate < 2.5 mg/dL (15.0-30.0); Total Protein 7.5 g/dL (6.4-8.9)
--- NOTE | 2018-04-12 18:34 | Emergency Department Note ---
Disposition Clinical Impression: Auditory hallucination, Visual hallucination, Suicidal ideation, Chronic schizophrenia, Hallucinations, Paranoia Depression Qualifiers: Depression Type: unspecified Qualified Code(s): F32.9 - Major depressive disorder, single episode, unspecified Disposition: Admitted As Inpatient Condition: Fair Time of Disposition: 18:45 General Adult HPI - General Chief complaint: ED Psychiatric Symptoms Stated complaint: SI/hallucinations Time Seen by Provider: 04/12/18 15:20 Source: patient Mode of arrival: ambulatory Limitations: no limitations Nursing Notes Reviewed: Yes Vital Signs Reviewed: Yes - History of Present Illness HPI Narrative: Patient is a 32-year-old male with past medical history of hallucinations as well as a psychiatric admission presents to the emergency department for evaluation of auditory and visual hallucinations. Patient admits to a prior history of drug use including methamphetamine, however he states that he has been clean. He does admit to marijuana use as well as occasional alcohol use but no alcohol use as of recently. The patient states that the voices and people that ear is hearing and seeing her just telling him to "come here." Patient also admits to thoughts of harming himself, however he has no plan and hasn't attempted. Pain Scale: 0 - Related Data Home Medications Medication Instructions Recorded Confirmed Prazosin [Minipress] 1 mg PO DAILY 04/13/18 04/13/18 Previous Rx's Medication Instructions Recorded Benztropine [Cogentin] 0.5 mg PO HS 30 Days #30 tablet 03/19/18 Escitalopram [Lexapro] 10 mg PO DAILY 30 Days #30 tablet 03/19/18 hydrOXYzine pamoate [HydrOXYzine 25 mg PO TID PRN 90 Days #30 03/19/18 Pamoate] capsule risperiDONE [RisperDAL] 1 mg PO HS 30 Days #30 tablet 03/19/18 Allergies Allergy/AdvReac Type Severity Reaction Status Date / Time No Known Allergies Allergy Verified 03/14/18 15:35 All systems ED: reviewed and negative except as stated. Review of Systems: As Per HPI Psychiatric: Reports: auditory hallucinations, visual hallucinations Past Medical History - Past Medical History Attestation: Yes The following information was validated with the patient. Medical history: Reports: no medical history Psychiatric history: Reports: anxiety, depression, panic disorder, PTSD, previous psychiatric hospitalization - Social History Smoking Status: Current every day smoker Smokeless Tobacco Status: Yes Alcohol use: Reports: none Drug use: Reports: methamphetamine Physical Exam CONSTITUTIONAL: Alert and oriented X3, well-nourished, well appearing, in no apparent distress HEAD: Normocephalic; atraumatic. EYES: PERRL, no scleral icterus. NOSE: The nose is normal in appearance without rhinorrhea RESP: Normal chest excursion with respiration; breath sounds clear and equal bilaterally; no wheezes, rhonchi, or rales CARD: Regular rhythm, without murmurs, rub or gallop ABD: Non-distended; non-tender, soft,without rigidity, rebound or guarding SKIN: Normal for age and race; warm and dry; no apparent lesions PSYCH: Admits to visual and auditory hallucinations. - General Limitations: no limitations General appearance: alert Course Course Narrative: Patient is stable at this time. He will be pink slipped and he will undergo evaluation for medical clearance to be seen by 1A. Vital Signs Temperature 98.2 F 04/12/18 14:50 Pulse Rate 67 04/12/18 14:50 Respiratory Rate 22 04/12/18 14:50 Blood Pressure 159/93 04/12/18 14:50 O2 Sat by Pulse Oximetry 98 04/12/18 14:50 Temperature 98.5 F 04/14/18 09:00 Pulse Rate 68 04/14/18 09:00 Respiratory Rate 16 04/14/18 09:00 Blood Pressure 124/59 04/14/18 09:00 O2 Sat by Pulse Oximetry 98 04/13/18 20:39 Oxygen Delivery Oxygen Delivery Room Air Medical Decision Making - Medical Records Medical records reviewed: Yes I reviewed the patient's medical records. - Lab Data Lab results reviewed: Yes I reviewed the patient's lab results. Result diagrams: 04/12/18 15:57 Lab Results 04/12/18 04/12/18 04/12/18 Range/Units 15:49 15:49 15:57 WBC 5.5 (4.3-11.1) K/mcL RBC 5.37 (4.19-5.50) M/mcL Hgb 16.2 (12.9-16.9) g/dL Hct 47.6 (37.5-50.1) % MCV 88.6 (83.0-100.0) fL MCH 30.2 (28.0-33.3) pg MCHC 34.0 (31.6-35.5) g/dL RDW 12.6 (11.5-14.5) % Plt Count 267 (140-400) K/mcL MPV 9.4 (9.4-12.4) fL Immature Gran % 0.4 (0-4) % Seg Neutrophils % 47.3 % Lymphocytes % 35.2 % Monocytes % 14.5 % Eosinophils % 1.7 % Basophils % 0.9 % Neutrophils # 2.6 (1.6-8.9) K/mcL Lymphocytes # 1.9 (0.6-4.6) K/mcL Monocytes # 0.8 (0.0-1.3) K/mcL Eosinophils # 0.1 (0.0-0.6) K/mcL Basophils # 0.1 (0.0-0.2) K/mcL Total Bilirubin (0.3-1.0) mg/dL Direct Bilirubin (0.0-0.2) mg/dL Indirect Bilirubin (0.0-1.2) mg/dL AST (13-39) Units/L ALT (7-52) Units/L Alkaline Phosphatase (34-104) Units/L Serum Total Protein (6.4-8.9) g/dL Albumin (3.5-5.7) g/dL Globulin (2.4-3.5) g/dL Albumin/Globulin Ratio (1.1-2.2) Urine Color Yellow (Yellow) Urine Clarity Clear (Clear) Urine pH 6.5 (5.0-8.0) pH Units Ur Specific [place] 1.011 (1.010-1.025) Urine Protein Negative (Neg-Trace) mg/dL Urine Glucose (UA) Normal (Normal) mg/dL Urine Ketones Negative (Negative) mg/dL Urine Blood Negative (Negative) Urine Nitrite Negative (Negative) Urine Bilirubin Negative (Negative) Urine Urobilinogen Normal (Normal) mg/dL Ur Leukocyte Esterase Negative (Negative) Salicylates (15.0-30.0) mg/dL Urine Opiates Screen Negative (Youxtw=529) ng/mL Acetaminophen (10-20) mcg/mL Ur Barbiturates Screen Negative (Wtwgzq=517) ng/mL Ur Phencyclidine Scrn Negative (Cutoff=25) ng/mL Ur Amphetamines Screen Negative (Pyhdjb=2313) ng/mL U Benzodiazepines Scrn Negative (Wbzyyb=382) ng/mL Urine Cocaine Screen Negative (Cutoff= 300) ng/mL U Marijuana (THC) Screen Positive H (Cutoff = 50) ng/mL Ur Drug Screen Interp See Below Ethyl Alcohol (Less than 10) mg/dL 04/12/18 Range/Units 15:57 WBC (4.3-11.1) K/mcL RBC (4.19-5.50) M/mcL Hgb (12.9-16.9) g/dL Hct (37.5-50.1) % MCV (83.0-100.0) fL MCH (28.0-33.3) pg MCHC (31.6-35.5) g/dL RDW (11.5-14.5) % Plt Count (140-400) K/mcL MPV (9.4-12.4) fL Immature Gran % (0-4) % Seg Neutrophils % % Lymphocytes % % Monocytes % % Eosinophils % % Basophils % % Neutrophils # (1.6-8.9) K/mcL Lymphocytes # (0.6-4.6) K/mcL Monocytes # (0.0-1.3) K/mcL Eosinophils # (0.0-0.6) K/mcL Basophils # (0.0-0.2) K/mcL Total Bilirubin 0.4 (0.3-1.0) mg/dL Direct Bilirubin 0.1 (0.0-0.2) mg/dL Indirect Bilirubin 0.3 (0.0-1.2) mg/dL AST 26 (13-39) Units/L ALT 34 (7-52) Units/L Alkaline Phosphatase 35 (34-104) Units/L Serum Total Protein 7.5 (6.4-8.9) g/dL Albumin 4.5 (3.5-5.7) g/dL Globulin 3.0 (2.4-3.5) g/dL Albumin/Globulin Ratio 1.5 (1.1-2.2) Urine Color (Yellow) Urine Clarity (Clear) Urine pH (5.0-8.0) pH Units Ur Specific [place] (1.010-1.025) Urine Protein (Neg-Trace) mg/dL Urine Glucose (UA) (Normal) mg/dL Urine Ketones (Negative) mg/dL Urine Blood (Negative) Urine Nitrite (Negative) Urine Bilirubin (Negative) Urine Urobilinogen (Normal) mg/dL Ur Leukocyte Esterase (Negative) Salicylates < 2.5 L (15.0-30.0) mg/dL Urine Opiates Screen (Mwraci=382) ng/mL Acetaminophen < 10 L (10-20) mcg/mL Ur Barbiturates Screen (Inzyrk=545) ng/mL Ur Phencyclidine Scrn (Cutoff=25) ng/mL Ur Amphetamines Screen (Nyxkeb=4387) ng/mL U Benzodiazepines Scrn (Jqhlot=280) ng/mL Urine Cocaine Screen (Cutoff= 300) ng/mL U Marijuana (THC) Screen (Cutoff = 50) ng/mL Ur Drug Screen Interp Ethyl Alcohol < 10 (Less than 10) mg/dL Attestation Statement - Attestation Attestation: Pt is a 32 yo bm with hx schizophrenia who presents to the ED with c/o incr depression with thoughts of harming himself and having visual and auditory hallucinations "telling him to hurt himself". Pt denies any prior hospitalizations. Pt reports medication compliance. Pt homeless, no local family. No recent falls/trauma, no recent change in medications. No recent illness, difficulty tolerating medications. I agree with patient's PE findings as documented. VSS. Pt placed on suicide precautions, pink slip signed and pt underwent psych m edical clearance with labs/UA. Pt with pos marijuana, otherwise labs wnl. Pt medically cleared for psychiatric evaluation by 1A, who felt pt would benefit from inpt admission and treatment.
[2018-04-12] MEDS ORDERED: *HR* LORazepam 1 MG TABLET PO PRN (19:24)
[2018-04-12] MEDS ORDERED: *HR* LORazepam 2 MG/ML VIAL IM PRN (19:24)
[2018-04-12] MEDS ORDERED: Haloperidol Lactate 5 MG/ML VIAL IM PRN (19:24)
[2018-04-12] MEDS ORDERED: MOM Conc 10 ML UD.LIQ PO PRN (19:24)
[2018-04-12] MEDS ORDERED: hydrOXYzine pamoate 25 MG CAPSULE PO PRN (19:38)
[2018-04-12] MEDS: risperiDONE 1 MG TABLET PO SCH (21:23)
--- NOTE | 2018-04-13 11:09 | Psychiatry History & Physical ---
Date of Encounter: 04/13/18 Time of Encounter: 11:00 History of Present Illness Medicare Admission Attestation: For traditional Medicare patients the provided hospital inpatient services are reasonable and necessary and in the case of services not specified as inpatient-only under 42 CFR 419.22 (n), that they are appropriately provided as inpatient services in accordance 42 CFR 412.3. For Critical Access Hospital the patient may reasonably be expected to be discharged or transferred to a hospital within 96 hours after admission to the Critical Access Hospital. Admitted From: Emergency Dept Plans for Post Hospital Care: Home History of Present Illness: Pt is a 32 yo ,, male, x1, with 4 children (12S, 9D, 5S, 4D), who presents for schizophrenia exacrbation with paranoid thoughts that people were following him. Pt noted he currently lives in [place] with my sister and my niece. Pt noted recent exacerbation of depression. Pt states when I came in I thought I wanted to hurt myself. Pt noted I came in because I needed some help I feel much better now. I feel safe and comfortable on the unit. Pt denied any side effects to current medications. Pt was in agreement with current treatment plan. Pt noted that he is doing alright today. Pt noted he slept 6 hours broken night. Pt noted his appetite is its down. Pt rated his depression a 8, on a scale of zero to ten with ten being the worst and zero being none. Pt rate his anxiety a 8, on the same scale. Pt denied any current auditory or visual hallucinations. Pt denied any current thoughts to harm himself or anyone else. Pt noted that he lives alone in [place], currently homeless. PT noted his mother and father are alive and live in [facility]. Pt noted that his highest level of education is 11th. Pt noted he is currently unemployed and receives SSDI. Pt not 1 previous inpt psychiatric hospitalizations. Pt denied any previous suicide attempts. Pt denied any family hx of suicides. PT denied any family mental health hx. Pt denied seizures, TBI, HEP C or HIV. No TD noted, AIMS=0 Alcohol: denies Street: marijuana occasionally Tobacco: 1PPD Caffiene: 2-3 per day. Assessment/Plan 1.Interval hx 2.Continue current medications 3.Review current labs 4.Pt had an opportunity to ask questions and discuss current treatment plan. 5.Supportive therapy was provided 6.Pt encouraged to consider group or individual therapy 7.Pt was in agreement with treatment plan. 8.Pt was educated on the risks benefits and side effects of current medications. 9. Continue risperidone 2 mg PO QHS for mood. Past Med Surg Social Fam HX - Past Medical History Medical history: no medical history - Past Psychiatric History Psychiatric history: Reports: schizophrenia, previous psychiatric hospitalization Family psychiatric history: No Family History of Suicide: None - Past Surgical History Surgical History: no surgical history - Social History Smoking Status: Current every day smoker Smokeless Tobacco Status: Yes Alcohol use: none Drug use: methamphetamine Medications & Allergies Benztropine [Cogentin] 0.5 mg PO HS 30 Days #30 tablet 03/19/18 [Rx] Escitalopram [Lexapro] 10 mg PO DAILY 30 Days #30 tablet 03/19/18 [Rx] hydrOXYzine pamoate [HydrOXYzine Pamoate] 25 mg PO TID PRN 90 Days #30 capsule 03/19/18 [Rx] risperiDONE [RisperDAL] 1 mg PO HS 30 Days #30 tablet 03/19/18 [Rx] Prazosin [Minipress] 1 mg PO DAILY 04/13/18 [History] Allergy/AdvReac Type Severity Reaction Status Date / Time No Known Allergies Allergy Verified 03/14/18 15:35 Review of Systems Constitutional: Denies: fever, chills, weakness, weight change Eyes: Denies: eye pain, vision change Ears, Nose, Throat: Denies: ear pain, throat pain, dental pain, hearing loss, congestion Cardiovascular: Denies: chest pain, palpitations, dyspnea on exertion Respiratory: Denies: cough, dyspnea, wheezes Gastrointestinal: Denies: abdominal pain, nausea, vomiting, diarrhea, constipation Genitourinary male: Denies: urgency, dysuria, frequency, genital lesions Musculoskeletal: Denies: joint swelling, joint pain Integumentary: Denies: rash, lesions, pruritus Neurological: Denies: headache, weakness, numbness, memory loss Psychiatric: Reports: depression, suicidal ideation, auditory hallucinations Endocrine: Denies: fatigue, heat or cold intolerance Hematologic/Lymphatic: Denies: easy bruising, lymphadenopathy Allergic/Immunologic: Denies: urticaria, itchy eyes Exam - HEENT Head exam IM: Present: atraumatic Eye exam IM: Present: EOMI, normal appearance, PERRL ENT exam IM: Present: normal exam - Neurological Neurological exam: Present: CN II-XII intact - Respiratory Respiratory exam IM: Present: CTAB - GI/Abdominal GI/Abdominal exam IM: Present: normal bowel sounds, soft. Absent: tenderness - Extremities Extremities exam IM: Present: full ROM - Skin Skin exam IM: Present: dry, warm - Constitutional Vitals: Temp Pulse Resp BP Pulse Ox 97.5 F L 78 18 136/84 98 04/13/18 09:25 04/13/18 09:25 04/13/18 09:25 04/13/18 09:25 04/13/18 09:25 General appearance: age & developmentally appropriate, well-groomed, well- nourished - Musculoskeletal Gait: normal Station: relaxed Strength & Tone: normal for patient - Psychiatric Patient Orientation: Yes Person, Yes Time, Yes Place Level of alertness: Alert Behavior: calm, cooperative Psychomotor activity: Normal Eye Contact: Maintains Eye Contact Mood Description: Euthymic/stable Affect description: congruent with mood, full range Speech Volume: Normal Speech pattern: normal rate, normal rhythm, normal tone, fluent, spontaneous Language & Vocabulary: consistent with education Thought Process: Linear, Goal Oriented Thought Content: Yes Suicidal ideation, No Homicidal ideation, No Overt delusions, Yes Ideas of reference, Yes Paranoid delusion, Yes Obsessive thoughts Perceptual Disturbances: Yes Auditory hallucinations, No Visual hallucinations Attention Span Ability: Capable of Focused Attention Memory Description: Grossly Intact Patient Reliability: Reliable Historian Fund of knowledge: Yes abstraction ability, Yes average, Yes aware of current events Intelligence Estimate: Average Judgment: Limited Insight: Partial Results - Drug Levels and Toxicology Drug Levels and Toxicology: Drug Levels and Toxicity 04/12/18 04/12/18 15:49 15:57 Urine Opiates Screen Negative Acetaminophen < 10 L Ur Barbiturates Screen Negative Ur Phencyclidine Scrn Negative Ur Amphetamines Screen Negative U Benzodiazepines Scrn Negative Urine Cocaine Screen Negative U Marijuana (THC) Screen Positive H Ethyl Alcohol < 10 - Labs Labs: Laboratory Last Values WBC 5.5 K/mcL (4.3-11.1) 04/12/18 15:57 RBC 5.37 M/mcL (4.19-5.50) 04/12/18 15:57 Hgb 16.2 g/dL (12.9-16.9) 04/12/18 15:57 Hct 47.6 % (37.5-50.1) 04/12/18 15:57 MCV 88.6 fL (83.0-100.0) 04/12/18 15:57 MCH 30.2 pg (28.0-33.3) 04/12/18 15:57 MCHC 34.0 g/dL (31.6-35.5) 04/12/18 15:57 RDW 12.6 % (11.5-14.5) 04/12/18 15:57 Plt Count 267 K/mcL (140-400) 04/12/18 15:57 MPV 9.4 fL (9.4-12.4) 04/12/18 15:57 Immature Gran % 0.4 % (0-4) 04/12/18 15:57 Seg Neutrophils % 47.3 % 04/12/18 15:57 Lymphocytes % 35.2 % 04/12/18 15:57 Monocytes % 14.5 % 04/12/18 15:57 Eosinophils % 1.7 % 04/12/18 15:57 Basophils % 0.9 % 04/12/18 15:57 Neutrophils # 2.6 K/mcL (1.6-8.9) 04/12/18 15:57 Lymphocytes # 1.9 K/mcL (0.6-4.6) 04/12/18 15:57 Monocytes # 0.8 K/mcL (0.0-1.3) 04/12/18 15:57 Eosinophils # 0.1 K/mcL (0.0-0.6) 04/12/18 15:57 Basophils # 0.1 K/mcL (0.0-0.2) 04/12/18 15:57 Total Bilirubin 0.4 mg/dL (0.3-1.0) 04/12/18 15:57 Direct Bilirubin 0.1 mg/dL (0.0-0.2) 04/12/18 15:57 Indirect Bilirubin 0.3 mg/dL (0.0-1.2) 04/12/18 15:57 AST 26 Units/L (13-39) 04/12/18 15:57 ALT 34 Units/L (7-52) 04/12/18 15:57 Alkaline Phosphatase 35 Units/L (34-104) 04/12/18 15:57 Serum Total Protein 7.5 g/dL (6.4-8.9) 04/12/18 15:57 Albumin 4.5 g/dL (3.5-5.7) 04/12/18 15:57 Globulin 3.0 g/dL (2.4-3.5) 04/12/18 15:57 Albumin/Globulin Ratio 1.5 (1.1-2.2) 04/12/18 15:57 Urine Color Yellow (Yellow) 04/12/18 15:49 Urine Clarity Clear (Clear) 04/12/18 15:49 Urine pH 6.5 pH Units (5.0-8.0) 04/12/18 15:49 Ur Specific [place] 1.011 (1.010-1.025) 04/12/18 15:49 Urine Protein Negative mg/dL (Neg-Trace) 04/12/18 15:49 Urine Glucose (UA) Normal mg/dL (Normal) 04/12/18 15:49 Urine Ketones Negative mg/dL (Negative) 04/12/18 15:49 Urine Blood Negative (Negative) 04/12/18 15:49 Urine Nitrite Negative (Negative) 04/12/18 15:49 Urine Bilirubin Negative (Negative) 04/12/18 15:49 Urine Urobilinogen Normal mg/dL (Normal) 04/12/18 15:49 Ur Leukocyte Esterase Negative (Negative) 04/12/18 15:49 Salicylates < 2.5 mg/dL (15.0-30.0) L 04/12/18 15:57 Urine Opiates Screen Negative ng/mL (Tpxmso=923) 04/12/18 15:49 Acetaminophen < 10 mcg/mL (10-20) L 04/12/18 15:57 Ur Barbiturates Screen Negative ng/mL (Xxifva=483) 04/12/18 15:49 Ur Phencyclidine Scrn Negative ng/mL (Cutoff=25) 04/12/18 15:49 Ur Amphetamines Screen Negative ng/mL (Mmvrei=7745) 04/12/18 15:49 U Benzodiazepines Scrn Negative ng/mL (Qrkkqu=125) 04/12/18 15:49 Urine Cocaine Screen Negative ng/mL (Cutoff= 300) 04/12/18 15:49 U Marijuana (THC) Screen Positive ng/mL (Cutoff = 50) H 04/12/18 15:49 Ur Drug Screen Interp See Below 04/12/18 15:49 Ethyl Alcohol < 10 mg/dL (Less than 10) 04/12/18 15:57 Assessment and Plan (1) Schizophrenia Current visit: Yes Status: Acute Plan: Admit inpatient for safety and stabilization, Close observation, Suicide Precautions per unit protocol, Encourage participation in unit milieu, Group Therapy, Monitor sleep, Monitor appetite Risks, benefits, side effects, alternatives discussed w/pt: Yes Patient agreeable to treatment: Yes Plans for Post Hospital Care: at Medical Facility Qualifiers: Schizophrenia type: paranoid schizophrenia Qualified Code(s): F20.0 - Paranoid schizophrenia
[2018-04-13] MEDS: traZODone 50 MG TABLET PO PRN (20:53)
[2018-04-13] MEDS: risperiDONE 1 MG TABLET PO SCH (20:53)
[2018-04-13] MEDS: hydrOXYzine pamoate 25 MG CAPSULE PO PRN (20:56)
--- NOTE | 2018-04-14 11:19 | Psychiatry Progress Note ---
Date of Encounter: 04/14/18 Time of Encounter: 11:16 Subjective Interval history: Client readmitted after leaving substance abuse program with a friend. Smoked THC but otherwise did not use any drugs. States he left due to return of symptoms. Out for a week before deciding to return to . Meds restarted and Risperdal increased yesterday. Client reports he has not noticed any improvement yet. Sill experiencing anxiety, paranoia, and hallucinations. Seems lower functioning. Wants to return to rehab but does not feel ready yet. Review of Systems Constitutional: Denies: fever, chills, weakness, weight change Eyes: Denies: eye pain, vision change Ears, Nose, Throat: Denies: ear pain, throat pain, dental pain, hearing loss, congestion Cardiovascular: Denies: chest pain, palpitations, dyspnea on exertion Respiratory: Denies: cough, dyspnea, wheezes Gastrointestinal: Denies: abdominal pain, nausea, vomiting, diarrhea, constipation Musculoskeletal: Denies: joint swelling, joint pain Neurological: Denies: headache, weakness, numbness, memory loss Psychiatric: Reports: depression, suicidal ideation, auditory hallucinations Results - Vital Signs Vital Signs: Temp Pulse Resp BP Pulse Ox 98.5 F 68 16 124/59 98 04/14/18 09:00 04/14/18 09:00 04/14/18 09:00 04/14/18 09:00 04/13/18 20:39 Assessment and Plan (1) Schizophrenia Current visit: Yes Status: Acute Plan: Continue hospitalization, Close observation, Suicide Precautions per unit protocol, Encourage participation in unit milieu, Group Therapy, Monitor sleep, Monitor appetite Risks, benefits, side effects, alternatives discussed w/pt: Yes Patient agreeable to treatment: Yes Qualifiers: Schizophrenia type: paranoid schizophrenia Qualified Code(s): F20.0 - Paranoid schizophrenia Consult Discharge Plan - Plan Referrals: NONE,PCP [Primary Care Provider] - Psychiatry Exam - Constitutional Vitals: Temp Pulse Resp BP Pulse Ox 98.5 F 68 16 124/59 98 04/14/18 09:00 04/14/18 09:00 04/14/18 09:00 04/14/18 09:00 04/13/18 20:39 General appearance: age & developmentally appropriate, well-groomed, well- nourished - Musculoskeletal Gait: normal Station: relaxed Strength & Tone: normal for patient - Psychiatric Patient Orientation: Yes Person, Yes Time, Yes Place Level of alertness: Alert Behavior: calm, cooperative Psychomotor activity: Normal Eye Contact: Maintains Eye Contact Mood Description: Anxious Affect description: congruent with mood Speech Volume: Normal Speech pattern: normal rate, normal rhythm, normal tone, fluent, spontaneous Language & Vocabulary: consistent with education Thought Process: Linear Thought Content: No Suicidal ideation, No Homicidal ideation, No Overt delusions Perceptual Disturbances: Yes Auditory hallucinations, Yes Visual hallucinations Attention Span Ability: Capable of Focused Attention Memory Description: Grossly Intact Patient Reliability: Reliable Historian Fund of knowledge: Yes abstraction ability, Yes aware of current events Intelligence Estimate: Below Average Judgment: Fair Insight: Partial
[2018-04-14] MEDS: risperiDONE 1 MG TABLET PO SCH (20:48)
[2018-04-14] MEDS: hydrOXYzine pamoate 25 MG CAPSULE PO PRN (20:49)
[2018-04-14] MEDS: Acetaminophen 325 MG TABLET PO PRN (20:49)
[2018-04-14] MEDS: traZODone 50 MG TABLET PO PRN (20:49)
--- NOTE | 2018-04-15 09:33 | Psychiatry Progress Note ---
Date of Encounter: 04/15/18 Time of Encounter: 09:31 Subjective Interval history: Client reports he is pushing himself to interact more. Started yesterday and plans to try and socialize more today. Still has some trouble sleeping and requested a higher Trazodone dose for tonight. Some paranoia but mood and anxiety levels are improving. Denies SI. Wants to go back to rehab. Review of Systems Constitutional: Denies: fever, chills, weakness, weight change Eyes: Denies: eye pain, vision change Ears, Nose, Throat: Denies: ear pain, throat pain, dental pain, hearing loss, congestion Cardiovascular: Denies: chest pain, palpitations, dyspnea on exertion Respiratory: Denies: cough, dyspnea, wheezes Gastrointestinal: Denies: abdominal pain, nausea, vomiting, diarrhea, constipation Musculoskeletal: Denies: joint swelling, joint pain Neurological: Denies: headache, weakness, numbness, memory loss Psychiatric: Reports: depression, suicidal ideation, auditory hallucinations Results - Vital Signs Vital Signs: Temp Pulse Resp BP Pulse Ox 97.9 F 76 17 123/82 98 04/15/18 08:20 04/15/18 08:20 04/15/18 08:20 04/15/18 08:20 04/13/18 20:39 Assessment and Plan (1) Schizophrenia Current visit: Yes Status: Acute Plan: Continue hospitalization, Close observation, Suicide Precautions per unit protocol, Encourage participation in unit milieu, Group Therapy, Monitor sleep, Monitor appetite Risks, benefits, side effects, alternatives discussed w/pt: Yes Patient agreeable to treatment: Yes Qualifiers: Schizophrenia type: paranoid schizophrenia Qualified Code(s): F20.0 - Paranoid schizophrenia Consult Discharge Plan - Plan Referrals: NONE,PCP [Primary Care Provider] - Psychiatry Exam - Constitutional Vitals: Temp Pulse Resp BP Pulse Ox 97.9 F 76 17 123/82 98 04/15/18 08:20 04/15/18 08:20 04/15/18 08:20 04/15/18 08:20 04/13/18 20:39 General appearance: age & developmentally appropriate - Musculoskeletal Gait: normal Station: relaxed Strength & Tone: normal for patient - Psychiatric Patient Orientation: Yes Person, Yes Time, Yes Place Level of alertness: Alert Behavior: calm, cooperative Psychomotor activity: Normal Eye Contact: Maintains Eye Contact Mood Description: Depressed, Anxious Affect description: congruent with mood Speech Volume: Normal Speech pattern: normal rate, normal rhythm, normal tone, fluent, spontaneous Language & Vocabulary: consistent with education Thought Process: Linear Thought Content: No Suicidal ideation, No Homicidal ideation, No Overt delusions Perceptual Disturbances: No Auditory hallucinations, No Visual hallucinations Attention Span Ability: Capable of Focused Attention Memory Description: Grossly Intact Patient Reliability: Reliable Historian Fund of knowledge: Yes abstraction ability, Yes aware of current events Intelligence Estimate: Below Average Judgment: Fair Insight: Partial
[2018-04-15] MEDS: Acetaminophen 325 MG TABLET PO PRN (20:27)
[2018-04-15] MEDS: traZODone 50 MG TABLET PO PRN (20:27)
[2018-04-15] MEDS: risperiDONE 1 MG TABLET PO SCH (20:27)
[2018-04-15] MEDS: hydrOXYzine pamoate 25 MG CAPSULE PO PRN (20:27)
--- NOTE | 2018-04-16 17:52 | Psychiatry Progress Note ---
Date of Encounter: 04/16/18 Time of Encounter: 16:30 Subjective Interval history: Patient seen for first time per this provider. Pt. states that he was hearing voices say heh.heh, and seeing people. Stated previous to hospitalization he was not sleeping. Pt. rates his depression a 5 on a scale of 1-10. Denies anxiety. Appeite is good. Patient stated he slept well with the Trazodone. Patient left the alf he was in, so is homeless now. Currently on Lexapro 10mg/d, Risperdal 2mg/hs and Trazodone for sleep. Long history of SUDS. Review of Systems Constitutional: Denies: fever, chills, weakness, weight change Eyes: Denies: eye pain, vision change Ears, Nose, Throat: Denies: ear pain, throat pain, dental pain, hearing loss, congestion Cardiovascular: Denies: chest pain, palpitations, dyspnea on exertion Respiratory: Denies: cough, dyspnea, wheezes Gastrointestinal: Denies: abdominal pain, nausea, vomiting, diarrhea, constipation Musculoskeletal: Denies: joint swelling, joint pain Neurological: Denies: headache, weakness, numbness, memory loss Psychiatric: Reports: depression, suicidal ideation, auditory hallucinations Results - Vital Signs Vital Signs: Temp Pulse Resp BP Pulse Ox 97.8 F 88 16 121/68 97 04/16/18 09:00 04/16/18 09:00 04/16/18 09:00 04/16/18 09:00 04/16/18 09:00 Assessment and Plan (1) Paranoia Current visit: Yes Status: Acute Plan: Continue hospitalization, Close observation, Suicide Precautions per unit protocol, Encourage participation in unit milieu, Group Therapy, Monitor sleep, Monitor appetite Additional Plan: Monitor patient's response to Risperdal and increase is needed. Also monitor patient's Lexapro for need to increase Risks, benefits, side effects, alternatives discussed w/pt: Yes Patient agreeable to treatment: Yes (2) Hallucinations Current visit: Yes Status: Acute Plan: Continue hospitalization, Close observation, Suicide Precautions per unit protocol, Encourage participation in unit milieu, Group Therapy, Monitor sleep, Monitor appetite Risks, benefits, side effects, alternatives discussed w/pt: Yes Patient agreeable to treatment: Yes (3) Acute psychosis Current visit: No Status: Resolved (4) Depressive disorder Current visit: No Status: Acute Consult Discharge Plan - Plan Referrals: NONE,PCP [Primary Care Provider] - Psychiatry Exam - Constitutional Vitals: Temp Pulse Resp BP Pulse Ox 97.8 F 88 16 121/68 97 04/16/18 09:00 04/16/18 09:00 04/16/18 09:00 04/16/18 09:00 04/16/18 09:00 General appearance: age & developmentally appropriate, well-groomed, well- nourished - Musculoskeletal Gait: normal Station: relaxed Strength & Tone: normal for patient - Psychiatric Patient Orientation: Yes Person, Yes Time, Yes Place Level of alertness: Alert Behavior: calm, cooperative, anxious Psychomotor activity: Normal Eye Contact: Maintains Eye Contact Mood Description: Depressed Patient description of mood: Patient states mood is down Affect description: blunted Speech Volume: Normal Speech pattern: normal rate, normal rhythm, normal tone, fluent, spontaneous Language & Vocabulary: grade school level Thought Process: Linear, Slowed Thinking Thought Content: Yes Suicidal ideation, Yes Paranoid delusion Perceptual Disturbances: Yes Auditory hallucinations, Yes Visual hallucinations Attention Span Ability: Capable of Focused Attention Memory Description: Grossly Intact Patient Reliability: Reliable Historian Fund of knowledge: Yes below average Intelligence Estimate: Below Average Judgment: Poor Insight: Partial
[2018-04-16] MEDS: traZODone 50 MG TABLET PO PRN (20:04)
[2018-04-16] MEDS: risperiDONE 1 MG TABLET PO SCH (20:04)
[2018-04-16] MEDS: hydrOXYzine pamoate 25 MG CAPSULE PO PRN (20:05)
[2018-04-16] MEDS: Acetaminophen 325 MG TABLET PO PRN (20:05)
[2018-04-16] MEDS: Mag Hydrox/Al Hydrox/Simeth 30 ML UDC PO PRN (20:06)
--- NOTE | 2018-04-17 15:08 | Psychiatry Progress Note ---
Date of Encounter: 04/17/18 Time of Encounter: 12:00 Subjective Interval history: Patient states he feels better today. He states that the auditory hallucination he was experiencing yesterday is not occuring today. He states his sleep was disturbed with problems falling asleep and then staying asleep. He stated he was dreaming a lot. Patient denies suicidal/homicidal ideation. Patient discusses his use of meth and alcohol in the past and thinks that what caused his lastest episode. Patient states he still feels paranoid at night like something is going to happen to him.. Since patient has history of noncompliance with medicaiton.S[place] discussed with him per this provider. Patient agreed to try Invega Sustenna. Although he states that he does not like needles he states he is willing to try this medication for the sake of better compliance. Review of Systems Constitutional: Denies: fever, chills, weakness, weight change Eyes: Denies: eye pain, vision change Ears, Nose, Throat: Denies: ear pain, throat pain, dental pain, hearing loss, congestion Cardiovascular: Denies: chest pain, palpitations, dyspnea on exertion Respiratory: Denies: cough, dyspnea, wheezes Gastrointestinal: Denies: abdominal pain, nausea, vomiting, diarrhea, constipation Musculoskeletal: Denies: joint swelling, joint pain Neurological: Denies: headache, weakness, numbness, memory loss Psychiatric: Reports: depression, abnormal sleep pattern, suicidal ideation, auditory hallucinations Results - Vital Signs Vital Signs: Temp Pulse Resp BP Pulse Ox 98.2 F 74 16 116/67 97 04/17/18 08:58 04/17/18 08:58 04/17/18 08:58 04/17/18 08:58 04/17/18 08:58 Assessment and Plan (1) Paranoia Current visit: Yes Status: Acute Plan: Continue hospitalization, Close observation, Suicide Precautions per unit protocol, Encourage participation in unit milieu, Group Therapy, Monitor sleep, Monitor appetite Additional Plan: Patient agreeable to trying Invega Sustenna. Since patient is not n a very high dose of Risperdal will give a lower loading dose of Invega Sustenna 156mg/IM Risks, benefits, side effects, alternatives discussed w/pt: Yes Patient agreeable to treatment: Yes (2) Hallucinations Current visit: Yes Status: Acute Risks, benefits, side effects, alternatives discussed w/pt: Yes Patient agreeable to treatment: Yes (3) Acute psychosis Current visit: No Status: Resolved (4) Depressive disorder Current visit: No Status: Acute Consult Discharge Plan - Plan Referrals: NONE,PCP [Primary Care Provider] - Psychiatry Exam - Constitutional Vitals: Temp Pulse Resp BP Pulse Ox 98.2 F 74 16 116/67 97 04/17/18 08:58 04/17/18 08:58 04/17/18 08:58 04/17/18 08:58 04/17/18 08:58
[2018-04-17] MEDS: Acetaminophen 325 MG TABLET PO PRN (20:20)
[2018-04-17] MEDS: risperiDONE 1 MG TABLET PO SCH (20:20)
[2018-04-17] MEDS: Mag Hydrox/Al Hydrox/Simeth 30 ML UDC PO PRN (20:20)
[2018-04-17] MEDS: hydrOXYzine pamoate 25 MG CAPSULE PO PRN (20:21)
[2018-04-17] MEDS: traZODone 50 MG TABLET PO PRN (20:21)
[2018-04-18 08:08] LABS: Chol/HDL Ratio 4.3 (0-4.9)
[2018-04-18] MEDS ORDERED: (Paliperidone Palmitate [Invega Sustenna] 156 MG) IM ONE (11:00)
--- NOTE | 2018-04-18 11:15 | Psychiatry Progress Note ---
Date of Encounter: 04/18/18 Time of Encounter: 10:45 Subjective Interval history: Patient states that he still has some paranoia especially at night with some trouble sleeping. He does think, though, that he is better today.. Patient ate all of his breakfast and is compliant with meds. Pt. not as troubled by voices as much. Patient states he does want to start the INvega Sustenna. This has been ordered and when it comes in will administer. Patient participated in all but one group yesterday. Review of Systems Constitutional: Denies: fever, chills, weakness, weight change Eyes: Denies: eye pain, vision change Ears, Nose, Throat: Denies: ear pain, throat pain, dental pain, hearing loss, congestion Cardiovascular: Denies: chest pain, palpitations, dyspnea on exertion Respiratory: Denies: cough, dyspnea, wheezes Gastrointestinal: Denies: abdominal pain, nausea, vomiting, diarrhea, constipation Musculoskeletal: Denies: joint swelling, joint pain Neurological: Denies: headache, weakness, numbness, memory loss Psychiatric: Reports: depression, abnormal sleep pattern, suicidal ideation, auditory hallucinations Results - Vital Signs Vital Signs: Temp Pulse Resp BP Pulse Ox 97.4 F L 65 18 128/91 95 04/18/18 09:00 04/18/18 09:00 04/18/18 09:00 04/18/18 09:00 04/18/18 09:00 - Labs Labs: Laboratory Results - last 24 hr 04/18/18 07:28 Glucose 98 Triglycerides 265 H Cholesterol 184 LDL Cholesterol, Calc 88 VLDL Cholesterol, Calc 53 H HDL Cholesterol 43 Cholesterol/HDL Ratio 4.3 - Impressions Patient is showing some improvement in hospital milieu and compliance with medications. Due to past hxitory of med noncompliance outside of hospital, [facility] discussed with patient and he is willing to get Invega Sustenna injection and continue the oral until stabilized. Assessment and Plan (1) Paranoia Current visit: Yes Status: Acute Additional Plan: INvega Sustenna to be administered Will get fasting lipids and glucose as is indicated while on atypical antipsychotics Risks, benefits, side effects, alternatives discussed w/pt: Yes Patient agreeable to treatment: Yes (2) Hallucinations Current visit: Yes Status: Acute Risks, benefits, side effects, alternatives discussed w/pt: Yes Patient agreeable to treatment: Yes (3) Acute psychosis Current visit: No Status: Acute Additional Plan: Invega Sustenna to be administer to convert from oral Risperdal which patient is noncompliant with Risks, benefits, side effects, alternatives discussed w/pt: Yes Patient agreeable to treatment: Yes (4) Depressive disorder Current visit: No Status: Acute Consult Discharge Plan - Plan Referrals: [facility] [Outside] (You are going to step-down at [facility] on discharge from the hospital. Form there you will enter men's residential treatment. All of your outpatient mental health services will be provided on-site, and will be scheduled for you by Crisis Center staff.) Psychiatry Exam - Constitutional Vitals: Temp Pulse Resp BP Pulse Ox 97.4 F L 65 18 128/91 95 04/18/18 09:00 04/18/18 09:00 04/18/18 09:00 04/18/18 09:00 04/18/18 09:00 General appearance: age & developmentally appropriate, well-groomed, well- nourished - Musculoskeletal Gait: normal Station: relaxed Strength & Tone: normal for patient - Psychiatric Patient Orientation: Yes Person, Yes Time, Yes Place Level of alertness: Alert Behavior: calm, cooperative Psychomotor activity: Normal Eye Contact: Maintains Eye Contact Mood Description: Anxious Affect description: blunted Speech Volume: Normal Speech pattern: normal rate, normal rhythm, normal tone, fluent, spontaneous Language & Vocabulary: consistent with education Thought Process: Logical, Goal Oriented, Circumstantial Thought Content: Yes Paranoid delusion Perceptual Disturbances: Yes Auditory hallucinations Attention Span Ability: Capable of Focused Attention Memory Description: Grossly Intact Patient Reliability: Reliable Historian Fund of knowledge: Yes abstraction ability, Yes aware of current events Intelligence Estimate: Below Average Judgment: Fair Insight: Partial
[2018-04-18] MEDS: traZODone 50 MG TABLET PO PRN (20:08)
[2018-04-18] MEDS: hydrOXYzine pamoate 25 MG CAPSULE PO PRN (20:08)
[2018-04-18] MEDS: Mag Hydrox/Al Hydrox/Simeth 30 ML UDC PO PRN (20:08)
[2018-04-18] MEDS: risperiDONE 1 MG TABLET PO SCH (20:09)
[2018-04-18] MEDS: Acetaminophen 325 MG TABLET PO PRN (20:09)
--- NOTE | 2018-04-19 11:27 | Psychiatry Progress Note ---
Date of Encounter: 04/19/18 Time of Encounter: 11:00 Subjective Interval history: Patient states he is much better today. He is smiling and stating the voices are gone and he feels good. Patient received his Invega Sustenna 156mg/IM and patient thinks it is helping a lot. Patient states he has no suicidal or homicidal ideation, intent or plan. Patient ate well yesterday and this morning. He seems very pleased with his progress. Patient is concerned that he be able to continue on the sleep medication. Patient will be discharged tomorrow to Crisis Center for continued care and then perhaps rehab. SW waiting to hear back from Crisis Center to finalize transfer. Patient is agreeable to that. Patient understand he will get another injection in a week and needs to continue on the oral up until he gets the second injection. Review of Systems Constitutional: Denies: fever, chills, weakness, weight change Eyes: Denies: eye pain, vision change Ears, Nose, Throat: Denies: ear pain, throat pain, dental pain, hearing loss, congestion Cardiovascular: Denies: chest pain, palpitations, dyspnea on exertion Respiratory: Denies: cough, dyspnea, wheezes Gastrointestinal: Denies: abdominal pain, nausea, vomiting, diarrhea, constipation Musculoskeletal: Denies: joint swelling, joint pain Neurological: Denies: headache, weakness, numbness, memory loss Psychiatric: Reports: depression Results - Vital Signs Vital Signs: Temp Pulse Resp BP Pulse Ox 98.2 F 75 16 132/72 99 04/19/18 08:37 04/19/18 08:37 04/19/18 08:37 04/19/18 08:37 04/19/18 08:37 - Impressions Hypercholesterolemia. Simvistatin initiated will need followup with repeat lipds and liver functions in 3 months per PCP Assessment and Plan (1) Paranoia Current visit: Yes Status: Acute Risks, benefits, side effects, alternatives discussed w/pt: Yes Patient agreeable to treatment: Yes (2) Hallucinations Current visit: Yes Status: Acute Plan: Continue hospitalization, Close observation, Suicide Precautions per unit protocol, Encourage participation in unit milieu, Group Therapy, Monitor sleep, Monitor appetite Risks, benefits, side effects, alternatives discussed w/pt: Yes Patient agreeable to treatment: Yes (3) Acute psychosis Current visit: Yes Status: Resolved Risks, benefits, side effects, alternatives discussed w/pt: Yes Patient agreeable to treatment: Yes (4) Depressive disorder Current visit: No Status: Resolved Plan: Continue hospitalization, Close observation, Suicide Precautions per unit protocol, Encourage participation in unit milieu, Group Therapy, Monitor sleep, Monitor appetite Risks, benefits, side effects, alternatives discussed w/pt: Yes Patient agreeable to treatment: Yes Consult Discharge Plan - Plan Additional Instructions: Patient was given Invega Sustenna 156mg on 04/18/2018. Next dose of Invega Sustenna 156mg is due on 04/26/2018. Patient should then receive Invega Sustenna 156mg again on 05/24/2018 and every subsequent 4 weeks. Referrals: [facility], [facility] [Other] [facility] [Outside] (You are going to step-down at [facility] on discharge from the hospital. Form there you will enter men's residential treatment. ) Psychiatry Exam - Constitutional Vitals: Temp Pulse Resp BP Pulse Ox 98.2 F 75 16 132/72 99 04/19/18 08:37 04/19/18 08:37 04/19/18 08:37 04/19/18 08:37 04/19/18 08:37 General appearance: age & developmentally appropriate, well-groomed, well- nourished - Musculoskeletal Gait: normal Station: relaxed Strength & Tone: normal for patient - Psychiatric Patient Orientation: Yes Person, Yes Time, Yes Place Level of alertness: Alert Behavior: calm, cooperative Psychomotor activity: Normal Eye Contact: Maintains Eye Contact Mood Description: Euthymic/stable Patient description of mood: "I feel good today, no depression Affect description: congruent with mood Speech Volume: Normal Speech pattern: normal rate, normal rhythm, normal tone, fluent, spontaneous Language & Vocabulary: consistent with education Thought Process: Logical, Linear, Goal Oriented Thought Content: No Suicidal ideation, No Homicidal ideation, No Overt delusions Perceptual Disturbances: No Auditory hallucinations, No Visual hallucinations Attention Span Ability: Capable of Focused Attention Memory Description: Grossly Intact Patient Reliability: Reliable Historian Fund of knowledge: Yes average Intelligence Estimate: Below Average Judgment: Fair Insight: Partial
[2018-04-19] MEDS: Mag Hydrox/Al Hydrox/Simeth 30 ML UDC PO PRN (20:15)
[2018-04-19] MEDS: traZODone 50 MG TABLET PO PRN (20:16)
[2018-04-19] MEDS: hydrOXYzine pamoate 25 MG CAPSULE PO PRN (20:16)
[2018-04-19] MEDS: risperiDONE 1 MG TABLET PO SCH (20:16)
[2018-04-19] MEDS: Acetaminophen 325 MG TABLET PO PRN (20:16)
--- NOTE | 2018-04-20 09:39 | Discharge Summary ---
Date of Encounter: 04/20/18 Time of Encounter: 09:20 Diagnosis - Discharge Diagnosis (1) Paranoia Status: Acute (2) Hallucinations Status: Acute Comments: Patient stabilized on oral and depot Invega (3) Acute psychosis Status: Resolved Medications - Discharge Medications Benztropine [Cogentin] 0.5 mg PO HS 30 Days #30 tablet 04/20/18 [Rx] Escitalopram [Lexapro] 10 mg PO DAILY 30 Days #30 tablet 04/20/18 [Rx] Paliperidone Palmitate [Invega Sustenna] 156 mg IM Q4W 1 Days #1 syringe 04/20/18 [Rx] Simvastatin [Zocor] 10 mg PO HS 30 Days #30 tablet 04/20/18 [Rx] risperiDONE [RisperDAL] 2 mg PO HS 15 Days #30 tablet 04/20/18 [Rx] traZODone [TraZODone] 100 mg PO HS PRN 30 Days #60 tablet 04/20/18 [Rx] Allergy/AdvReac Type Severity Reaction Status Date / Time No Known Allergies Allergy Verified 03/14/18 15:35 Results Procedures and tests throughout hospitalization: Completed Lab Orders Category Date Time Status Acetaminophen Stat Lab 04/12/18 15:57 Completed Complete Blood Count [HEME] Stat Lab 04/12/18 15:57 Completed Drug Screen, Urine [UCHEM] Stat Lab 04/12/18 15:49 Completed Ethanol Stat Lab 04/12/18 15:57 Completed Glucose AM 0400 Lab 04/18/18 07:28 Completed Hepatic Panel Stat Lab 04/12/18 15:57 Completed Lipid Panel AM 0400 Lab 04/18/18 07:28 Completed Salicylate Stat Lab 04/12/18 15:57 Completed Urinalysis reflex Microscopic [URIN] Stat Lab 04/12/18 15:49 Completed - Impressions Patient with elevated lipids Simvastatin initiated. Patient will need PCP followup to repeat lipids and get LFT's. Provider Date of admission: 04/12/18 18:56 Primary care physician: PCP NONE Consults: 04/12/18 20:11 Consult to Pastoral Services [CONS] Routine Comment: Discharging clinician: Snehal Toscano Psychiatry Exam - Constitutional Vitals: Temp Pulse Resp BP Pulse Ox 97.8 F 72 18 123/78 98 04/19/18 20:02 04/19/18 20:02 04/19/18 20:02 04/19/18 20:02 04/19/18 20:02 General appearance: age & developmentally appropriate, well-groomed, well- nourished - Musculoskeletal Gait: normal Station: relaxed Strength & Tone: normal for patient - Psychiatric Patient Orientation: Yes Person, Yes Time, Yes Place Level of alertness: Alert Behavior: calm, cooperative Psychomotor activity: Normal Eye Contact: Maintains Eye Contact Mood Description: Euthymic/stable Patient description of mood: good mood, not depressed Affect description: constricted Speech Volume: Normal Speech pattern: normal rate, normal rhythm, normal tone, fluent, spontaneous Language & Vocabulary: consistent with education Thought Process: Logical, Linear, Goal Oriented Thought Content: Yes Paranoid delusion Perceptual Disturbances: No Auditory hallucinations, No Visual hallucinations Attention Span Ability: Capable of Focused Attention Memory Description: Grossly Intact Patient Reliability: Reliable Historian Fund of knowledge: Yes below average Intelligence Estimate: Below Average Judgment: Fair Insight: Partial Hospital Course Hospital course: Mr. Garrett is a 32 year old male admitted with a diagnosis of schizophrenia with exacerbation of paranoid delusions that someone was following him. Patient initially on oral Risperdal and continued to have paranoid delusions with depressed mood. Patient agreed to try Invega Sustenna. Since patient's dose of Risperdal was low, a lower loading dose of 156mg/IM was given. Patient's noted improvement the next day with decrease in paranoia and some vague auditory hallucinations which were not distinctly voices but something like "heh, heh." Patient tolerated Invega injections well. Patient required Trazodone for sleep. Trazodone allowed himm to sleep less fitfully and go to sleep faster. Patient was continued on his Lexapro for mood and Benztropine for EP.At the time of discharge patient denies SI/HI, denied auditory hallucinations and significant decrease in paranoid ideation. Patient to be transferred to [facility] by EMS. Patient will receive another Invega Sustenna injection next week and will continue his oral Risperdal until second injection occurs. Patient understand and is agreement with this plan. - Time Spent with Patient Total time spent providing and/or coordinating discharge services: 25 minutes Less than 30 minutes Assessment and Plan - Patient/Caregiver Discharge Instructions Activity: resume usual activities as tolerated Diet: regular diet Additional Instructions: Patient was given Invega Sustenna 156mg on 04/18/2018. Next dose of Invega Sustenna 156mg is due on 04/26/2018. Patient should then receive Invega Sustenna 156mg again on 05/24/2018 and every subsequent 4 weeks. - Follow up Plan Follow up with: [facility], [facility] [Other] (You will see Marce for primary care and to receive your Invega Sustenna injection on 04/26/2018 at 9:15am. You will see Mary for outpatient psychiatric assessment and medication management services on 05/07/2018 at 10:00am.) [facility] [Outside] ([facility] on discharge from the hospital. Form there you will enter [facility]'s residential treatment. ) Overall status at discharge: Stable Disposition: Transfer Intermediate Care [facility] - Multiple Antipsychotics Patient discharged on 2 or more antipsychotic medications: Yes (Patient on Invega Sustenna, Risperdal will be discontinued in 5 days) - Justification Documentation of: Recommended plan to taper to monotherapy Procedures - Procedures Procedures: Medication Management, Crisis Stabilization, Supportive Therapy, Group Therapy, Psychoeducational Therapy
[2018-04-20 09:59] VITALS: BP 126/78
== END 2018-04-20 12:07 | DRG 750 ==
LOC: EMEROOARM 14:46 → SUATTDRO 18:56 → 1ANU 18:56
PROVIDERS: ADMIT General Practice; ATTEND Psychiatry & Neurology Psychiatry